=== PATIENT | female | born 1980 | race Two or more races ===

== ENCOUNTER 2022-02-11 12:18 | Emergency (ER) | payer SELFPAY ==
[~2022-02-11] VITALS: Ht 162.6 cm; Wt 68.0 kg
--- NOTE | 2022-02-11 12:32 | NUR ---
TO ER BED 13, DC CHEW "was picked up on the [address] saying she was possessed/psych", aaox3, cooperative, breathing even and non labored, connected to monitor, awaiting md orders
--- NOTE | 2022-02-11 12:40 | NUR ---
URINE COLLECTED AND SENT TO LAB
--- NOTE | 2022-02-11 12:55 | NUR ---
COVID SWAB DONE AND SENT TO LAB
--- NOTE | 2022-02-11 12:57 | NUR ---
CHANGE RELEASE MANAGER AT BEDSIDE FOR BLOOD DRAW
[2022-02-11 13:02] LABS: BASOPHILS % (AUTO) 0.2 % (0.0-2.0); HEMATOCRIT 39 % (33-45); HEMOGLOBIN 13.3 g/dL (11.5-14.8); LYMPHOCYTES % (AUTO) 29.4 % (20.0-44.0); MEAN CORPUSCULAR HGB CONC 34 g/dl (31.0-36.0); MEAN CORPUSCULAR VOLUME 83 fL (82-100); MONOCYTES # (AUTO) 0.9 K/uL (0.1-1.30); MONOCYTES % (AUTO) 13.7 % (2.0-12.0); NEUTROPHILS # (AUTO) 3.9 K/uL (1.8-8.9); NEUTROPHILS % (AUTO) 56.7 % (43.0-81.0); PLATELET COUNT (AUTO) 363 K/uL (150-450); RED BLOOD CELL COUNT(AUTO) 4.65 MIL/uL (4.0-5.2); WHITE BLOOD COUNT (AUTO) 6.9 K/uL (4.3-11.0)
[2022-02-11 13:06] LABS: BILIRUBIN,URINE NEGATIVE (NEGATIVE); COLOR,URINE YELLOW (YELLOW); LEUKOCYTE ESTERASE ,URINE SMALL (NEGATIVE); NITRITE, URINE NEGATIVE (NEGATIVE); PROTEIN,URINE NEGATIVE (NEGATIVE); UGLUCOSE NEGATIVE (NEGATIVE); UROBILINOGEN,URINE 0.2 EU/dL (0.2)
[2022-02-11 13:14] LABS: CALCIUM, SERUM 8.8 mg/dL (8.5-10.1); CREATININE 1.1 mg/dL (0.6-1.3); POTASSIUM 3.6 mmol/L (3.5-5.1)
[2022-02-11 13:16] LABS: RBC,URINE 0-2 /HPF (0-2)
[2022-02-11 13:17] LABS: BACTERIA,URINE Few /HPF (None Seen); SQUAMOUS EPITHELIAL CELL,UR Many /HPF (None Seen)
[2022-02-11 13:20] LABS: ALBUMIN 3.5 g/dL (3.4-5.0); BILIRUBIN,DIRECT 0.2 mg/dL (0.0-0.2); BILIRUBIN,TOTAL 0.7 mg/dL (0.2-1.0); TOTAL PROTEIN, SERUM 7.2 g/dL (6.4-8.2)
[2022-02-11] MEDS ORDERED: TDAP [DIPH/PERTUSSIS/TET] 0.5 ML VIAL IM ONE ×2 (15:00→15:04)
[2022-02-11] MEDS ORDERED: CEPHALEXIN MONOHYDRATE 500 MG CAPSULE PO ONE ×2 (15:00→15:04)
--- NOTE | 2022-02-11 16:00 | NUR ---
Dozing on and off in NO obvious distress. Status quo VSS
--- NOTE | 2022-02-11 17:00 | NUR ---
Medically Cleared [place] ER Provider
[2022-02-11 17:20] VITALS: BP 154/90
--- NOTE | 2022-02-11 17:20 | NUR ---
Patient discharged to home in stable condition. Verbal after care instructions given. Patient Refuses to sign ACI.
== END 2022-02-11 17:21 | disposition home or self-care (01) ==
LOC: ER 12:18
DX: R46.2 Strange and inexplicable behavior (principal); S02.2XXA Fracture of nasal bones, initial encounter for closed fracture; X58.XXXA Exposure to other specified factors, initial encounter; Y92.89 Other specified places as the place of occurrence of the external cause; N39.0 Urinary tract infection, site not specified; S09.90XA Unspecified injury of head, initial encounter; Z20.822 Contact with and (suspected) exposure to COVID-19
CPT/HCPCS: 36415; 70450; 70486; 72125; 80048; 80076; 80143; 80307; 80320; 81001; 84703; 85025; 87077; 87086; 87186; 87426; 90471; 90715; 99285; A6403; C9803; G0480

== ENCOUNTER 2022-07-17 14:42 | Emergency (ER) | payer SELFPAY ==
[~2022-07-17] VITALS: Ht 152.4 cm; Wt 48.1 kg
[2022-07-17 14:50] VITALS: BP 133/90
--- NOTE | 2022-07-17 14:55 | NUR ---
REQUESTED TO GO TO THE BATHROOM TO COLLECT URINE SAMPLE BUT PATIENT DEMANDED THAT THE TEST BE DONE INFRONT OF HER. WHEN TOLD THAT WE HAVE TO SEND IT TO THE LAB, SHE WENT FOR THE DOOR AND LEFT INSTEAD.
== END 2022-07-17 15:00 | disposition left against medical advice (07) ==
LOC: ER 14:44
DX: Z53.21 Procedure and treatment not carried out due to patient leaving prior to being seen by health care provider (principal)